=== PATIENT | male | born 1970 | race Caucasian/White ===

== ENCOUNTER 2019-05-16 14:08 | Emergency (ER) | payer BC ==
--- NOTE | 2019-05-16 14:25 | EDM.PDOC ---
ED HPI GENERAL MEDICAL PROBLEM - General Chief Complaint: Skin Complaint Stated Complaint: CYST ON STOMACH Time Seen by Provider: 05/16/19 14:25 Source of Information: Reports: Patient History Limitations: Reports: No Limitations - History of Present Illness INITIAL COMMENTS - FREE TEXT/NARRATIVE: HISTORY AND PHYSICAL: History of present illness: Patient is a 48-year-old male presents to the ED with concern of a cyst on his abdomen. He states he has had a hard lump to his left upper abdomen for a couple of months. The past few days it has been painful and he squeezed and felt it "pop internally." He states he stuck a syringe in it and got some pus out. He denies fevers, chills, nausea, vomiting, abdominal pain. Review of systems: As per history of present illness and below otherwise all systems reviewed and negative. Past medical history: As per history of present illness and as reviewed below otherwise noncontributory. Surgical history: As per history of present illness and as reviewed below otherwise noncontributory. Social history: No reported history of drug or alcohol abuse. Family history: As per history of present illness and as reviewed below otherwise noncontributory. Physical exam: General: Patient sitting comfortably in no acute distress and nontoxic appearing HEENT: Atraumatic, normocephalic, pupils reactive, negative for conjunctival pallor or scleral icterus, mucous membranes moist, throat clear, neck supple, nontender, trachea midline. No meningeal signs. Lungs: Clear to auscultation, breath sounds equal bilaterally, chest nontender. Heart: S1S2, regular, negative for clicks, rubs, or overt murmur. Abdomen: Soft, nondistended, nontender. Negative for masses or hepatosplenomegaly. Negative for costovertebral tenderness. No rigidity, rebound , guarding. Pelvis: Stable nontender. Genitourinary: Deferred. Rectal: Deferred. Skin: 3x3 cm fluctuant abscess to the left upper abdominal wall without surrounding erythema Extremities: Atraumatic, negative for cords or calf pain. Neurovascular unremarkable. Neuro: Awake, alert, oriented. Cranial nerves II through XII unremarkable. Cerebellum unremarkable. Motor and sensory unremarkable throughout. Exam nonfocal. Notes: Diagnostics: [] Therapeutics: Abscess I&D, see procedure note Prescriptions: Bactrim Impression: Abscess Definitive disposition and diagnosis as appropriate pending reevaluation and review of above. Upper Abdomen Pain Score (Numeric/FACES): 5 - Related Data Allergies Allergy/AdvReac Type Severity Reaction Status Date / Time No Known Allergies Allergy Verified 05/16/19 14:23 Home Meds: Home Meds Aspirin 325 mg PO DAILY 05/16/19 [History] Carvedilol [Coreg] 25 mg PO BID 05/16/19 [History] FLUoxetine HCl [Prozac] 20 mg PO DAILY 05/16/19 [History] Byron Carbonate 300 mg PO DAILY 05/16/19 [History] Nabumetone [Relafen Ds] 750 mg PO DAILY 05/16/19 [History] Non-Formulary Medication [NF Drug] 1 each IM ASDIRECTED 05/16/19 [History] Sulfamethoxazole/Trimethoprim [Bactrim Ds Tablet] 1 each PO BID 7 Days #14 tablet 05/16/19 [Rx] ED ROS GENERAL - Review of Systems Review Of Systems: Comprehensive ROS is negative, except as noted in HPI. ED EXAM, SKIN/RASH Exam: See Below (see dictation) ED SKIN PROCEDURES - I&D Site: left upper abdominal wall Skin Prep: Providone-Iodine (Betadine), Isopropyl Alcohol (Alcohol) Local Anesthesia: Lidocaine: 1% with EPI Local Anesthetic Volume: 2cc Area Incised With: 11 Blade Drainage: Purulent, Bloody Probed to Break Up Loculations: Yes Packed With: None Complications: No Course - Vital Signs Last Recorded V/S: Last Vital Signs Temp 97.6 F 05/16/19 14:26 Pulse 88 05/16/19 14:26 Resp 18 05/16/19 14:26 BP 112/79 05/16/19 14:26 Pulse Ox 96 05/16/19 14:26 - Orders/Labs/Meds Meds: Medications Discontinued Medications Generic Name Dose Route Start Last Admin Trade Name Freq PRN Reason Stop Dose Admin Lidocaine/Epinephrine 10 ml 05/16/19 14:34 Xylocaine 1% With Epinephrine 1:100,000 INJECT 05/16/19 14:35 ONETIME ONE Lidocaine/Epinephrine Confirm 05/16/19 14:39 Xylocaine 1% With Epinephrine 1:100,000 Administered 05/16/19 14:40 Dose 20 ml .ROUTE .STK-MED ONE Departure - Departure Time of Disposition: 14:56 Disposition: Home, Self-Care 01 Condition: Good Clinical Impression: Abscess - Discharge Information Prescriptions: Sulfamethoxazole/Trimethoprim [Bactrim Ds Tablet] 1 each PO BID 7 Days #14 tablet Instructions: Skin Abscess, [id number] Referrals: Saige Martini [employer] [Primary Care Provider] - Forms: ED Department Discharge Additional Instructions: The following information is given to patients seen in the emergency department who are being discharged to home. This information is to outline your options for follow-up care. We provide all patients seen in our emergency department with a follow-up referral. The need for follow-up, as well as the timing and circumstances, are variable depending upon the specifics of your emergency department visit. If you don't have a primary care physician on staff, we will provide you with a referral. We always advise you to contact your personal physician following an emergency department visit to inform them of the circumstance of the visit and for follow-up with them and/or the need for any referrals to a consulting specialist. The emergency department will also refer you to a specialist when appropriate. This referral assures that you have the opportunity for follow-up care with a specialist. All of these measure are taken in an effort to provide you with optimal care, which includes your follow-up. Under all circumstances we always encourage you to contact your private physician who remains a resource for coordinating your care. When calling for follow-up care, please make the office aware that this follow-up is from your recent emergency room visit. If for any reason you are refused follow-up, please contact the [facility] Emergency Department at and asked to speak to the emergency department charge nurse. [facility] [address] [place] [id number] [address] Take antibiotic as instructed Follow up with primary are provider Return to ED as needed as discussed Sepsis Event Note - Focused Exam Vital Signs: Vital Signs Temp Pulse Resp BP Pulse Ox 05/16/19 14:26 97.6 F 88 18 112/79 96 Date Exam was Performed: 05/16/19 Time Exam was Performed: 15:06
[2019-05-16] MEDS ORDERED: Lidocaine 1% with EPINEPHrine 1:100,000 10 ML MDV INJECT ONE (14:34)
[2019-05-16] MEDS ORDERED: Lidocaine 1% with EPINEPHrine 1:100,000 20 ML MDV ONE (14:39)
== END 2019-05-16 15:14 | disposition home or self-care (01) ==
LOC: MW.ED 14:08
DX: L02.211 Cutaneous abscess of abdominal wall (principal); Z79.82 Long term (current) use of aspirin
CPT/HCPCS: 10060; 99282; 99282-25

== ENCOUNTER 2023-09-08 09:46 | Day surgery (SDC) | payer BC ==
[2023-09-08] MEDS: Lactated Ringers 1,000 ML IV SCH (10:27)
[2023-09-08] MEDS ORDERED: propofoL 50 ML ONE (11:09)
[2023-09-08] MEDS ORDERED: fentaNYL 100 MCG/2 ML SDV ONE (12:11)
[2023-09-08] MEDS ORDERED: Propofol 200 MG/20 ML SDV ONE (12:15)
[2023-09-08] MEDS ORDERED: Lactated Ringers 1,000 ML IV SCH (12:45)
== END 2023-09-08 13:07 | disposition home or self-care (01) ==
LOC: MW.SDS 09:46
PROVIDERS: ATTEND Surgery
DX: Z12.11 Encounter for screening for malignant neoplasm of colon (principal); J45.909 Unspecified asthma, uncomplicated; I10 Essential (primary) hypertension; E11.9 Type 2 diabetes mellitus without complications; E78.00 Pure hypercholesterolemia, unspecified; F31.9 Bipolar disorder, unspecified; Z79.899 Other long term (current) drug therapy; Z91.040 Latex allergy status; Z88.8 Allergy status to other drugs, medicaments and biological substances
CPT/HCPCS: 45378; J2704; J3010; J7120